=== PATIENT | female | born 1965 | race American Indian/Alaskan Native ===

== ENCOUNTER 2018-12-26 18:14 | Emergency (ER) | payer OTHER ==
--- NOTE | 2018-12-26 18:34 | Event Note ---
ED Screening Note ED Screening Note: CO CP P BEING OUTSIDE POOR HYGIENE AMBULATORY RO ACS/HEAT RELATED ILLNESS This initial assessment/diagnostic orders/clinical plan/treatment(s) is/are subject to change based on patients health status, clinical progression and re- assessment by fellow clinical providers in the ED. Further treatment and workup at subsequent clinical providers discretion. Patient/guardian urged not to elope from the ED as their condition may be serious if not clinically assessed and managed. Initial orders include:
[2018-12-26 19:51] LABS: Hematocrit 31.8 % (30.3-42.9); Hemoglobin 10.5 gm/dl (10.1-14.3); Mean Corpuscular HGB Conc 33 % (30-34); Mean Corpuscular Volume 82 fl (79-97); Platelet Count 353 K/mm3 (140-440); Red Blood Count 3.88 M/mm3 (3.65-5.03); Red Cell Distribution Width 16.7 % (13.2-15.2)
[2018-12-26 20:45] LABS: Alanine Aminotransferase 10 units/L (7-56); Albumin 4.1 g/dL (3.9-5); BUN/Creatinine Ratio 13; Blood Urea Nitrogen 20 mg/dL (7-17); Calcium 9.1 mg/dL (8.4-10.2); Hemolysis Index 1
--- NOTE | 2018-12-26 20:45 | XRay Report ---
PROCEDURE: XR CHEST ROUTINE 2V TECHNIQUE: PA and lateral chest radiographs were obtained. HISTORY: CHEST PAIN COMPARISONS: None. FINDINGS: There is prominence of the interstitial markings in both lungs with peribronchial thickening, acute v ersus chronic. There is no definite evidence of focal infiltrate and no evidence of pneumothorax or pleural fluid co llection. The cardiac silhouette is enlarged. The thoracic aorta is mildly tortuous. The bony structures are unremarkable. IMPRESSION: 1. Enlarged cardiac silhouette. 2. Prominence of the interstitial markings with peribronchial thickening, acute versus chronic. Infec tious and noninfectious etiologies, to include interstitial edema, need to be considered. This document is electronically signed by Kat Denis MD., December 26 2018 08:43:23 PM ET
--- NOTE | 2018-12-26 23:08 | Emergency Department Report ---
ED Chest Pain HPI - General Chief Complaint: Chest Pain Stated Complaint: CHEST PAIN Time Seen by Provider: 12/26/18 18:24 Source: patient Mode of arrival: Ambulatory Limitations: No Limitations - History of Present Illness Initial Comments: Patient was 53-year-old -[place] female who presents for chest pain 2-3 days pain is exacerbated by movement and deep breathing pain is relieved by rest there is no shortness of breath no diaphoresis no nausea vomiting no back pain patient ray symptoms at 08/17 at this time patient denies history of CHF denies history of [place] or coronary artery disease patient is a 30 pack year smoker denies diagnosis of COPD advises that she is out hypertensive medications MD Complaint: chest pain Onset/Timin -: days(s) Onset: during rest Pain Location: left chest Pain Radiation: none Severity: moderate Severity scale (0 -10): 5 Quality: sharp Consistency: constant Improves With: rest Worsens With: inspiration, movement re: denies: nausea, vomting, diaphoresis, dyspnea, sense of impending doom Other Symptoms: cough, fever. denies: syncope, rash, acid taste in mouth, leg swelling, palpitations, burping Treatments Prior to Arrival: none - Related Data Previous Rx's Medication Instructions Recorded Last Taken Type ALBUTEROL Inhaler (OR & NICU) 2 puff IH QID PRN #1 inhalation 12/27/18 Unknown Rx [ProAir HFA Inhaler] Azithromycin [Zithromax Z-TATA] 250 mg PO DAILY #6 tab 12/27/18 Unknown Rx Benzonatate [Tessalon Perles] 100 mg PO Q8HR PRN #30 capsule 12/27/18 Unknown Rx Ibuprofen [Motrin 800 MG tab] 800 mg PO Q8HR PRN #30 tablet 12/27/18 Unknown Rx predniSONE [Deltasone] 40 mg PO QDAY 5 Days #10 tab 12/27/18 Unknown Rx Allergies Allergy/AdvReac Type Severity Reaction Status Date / Time No Known Allergies Allergy Unverified 12/26/18 18:16 Heart Score - HEART Score History: Slightly suspicious EKG: Normal Age: 45-65 Risk factors: No known risk factors Troponin: < normal limit HEART Score: 1 ED Review of Systems ROS: Stated complaint: CHEST PAIN Other details as noted in HPI Constitutional: denies: chills, fever Eyes: denies: eye pain, eye discharge, vision change ENT: denies: ear pain, throat pain, congestion Respiratory: denies: cough, shortness of breath, wheezing Cardiovascular: chest pain (left lateral chest wall tenderness no swelling no erythema no crepitus no deformity ). denies: palpitations Endocrine: no symptoms reported Gastrointestinal: denies: abdominal pain, nausea, diarrhea Genitourinary: denies: urgency, dysuria, discharge Musculoskeletal: denies: back pain, joint swelling, arthralgia Skin: denies: rash, lesions Neurological: denies: headache, weakness, paresthesias Psychiatric: denies: anxiety, depression Hematological/Lymphatic: denies: easy bleeding, easy bruising ED Past Medical Hx - Past Medical History Previous Medical History?: Yes Hx Hypertension: Yes - Surgical History Past Surgical History?: Yes Additional Surgical History: TUBAL - Social History Smoking Status: Never Smoker Substance Use Type: None - Medications Home Medications: Home Medications Medication Instructions Recorded Confirmed Last Taken Type ALBUTEROL Inhaler (OR & NICU) 2 puff IH QID PRN #1 inhalation 12/27/18 Unknown Rx [ProAir HFA Inhaler] Azithromycin [Zithromax Z-TATA] 250 mg PO DAILY #6 tab 12/27/18 Unknown Rx Benzonatate [Tessalon Perles] 100 mg PO Q8HR PRN #30 capsule 12/27/18 Unknown Rx Ibuprofen [Motrin 800 MG tab] 800 mg PO Q8HR PRN #30 tablet 12/27/18 Unknown Rx predniSONE [Deltasone] 40 mg PO QDAY 5 Days #10 tab 12/27/18 Unknown Rx ED Physical Exam - General Limitations: No Limitations General appearance: alert, in no apparent distress - Head Head exam: Present: atraumatic, normocephalic - Eye Eye exam: Present: normal appearance, PERRL, EOMI Pupils: Present: normal accommodation - ENT ENT exam: Present: normal orophraynx, mucous membranes moist, TM's normal bilaterally, normal external ear exam - Neck Neck exam: Present: normal inspection, full ROM. Absent: tenderness, meningismus, lymphadenopathy, thyromegaly - Expanded Neck Exam Expanded Neck exam: Absent: tenderness, midline deformity, anterior neck swelling, thyroid mass, carotid bruit, tracheal deviation - Respiratory Respiratory exam: Present: normal lung sounds bilaterally, chest wall tenderness (left lateral ). Absent: respiratory distress, wheezes, rales, rhonchi, stridor - Cardiovascular Cardiovascular Exam: Present: regular rate, normal rhythm, normal heart sounds. Absent: systolic murmur, diastolic murmur, rubs, gallop - GI/Abdominal GI/Abdominal exam: Present: soft, normal bowel sounds. Absent: distended, tenderness, guarding, rebound, rigid, bruit, hernia - Rectal Rectal exam: Absent: deferred - External exam: Present: normal external exam - Extremities Exam Extremities exam: Present: normal inspection, normal capillary refill - Back Exam Back exam: Present: normal inspection, full ROM. Absent: tenderness, CVA tenderness (R), CVA tenderness (L), muscle spasm, paraspinal tenderness, rash noted - Neurological Exam Neurological exam: Present: alert, oriented X3, CN II-XII intact, normal gait, reflexes normal - Psychiatric Psychiatric exam: Present: normal affect, normal mood - Skin Skin exam: Present: warm, dry, intact, normal color. Absent: rash ED Course Vital Signs 12/26/18 19:54 Temperature 98 F Pulse Rate 103 H Respiratory 20 Rate Blood Pressure 170/92 O2 Sat by Pulse 99 Oximetry TERRY score - Terry Score Age > 65: (0) No Aspirin use within the Past 7 Days: (0) No 3 or more CAD Risk Factors: (0) No 2 or more Angina events in past 24 hrs: (0) No Known CAD with more than 50% Stenosis: (0) No Elevated Cardiac Markers: (0) No ST Deviation Greater than 0.5mm: (0) No TERRY Score: 0 ED Medical Decision Making - Lab Data Result diagrams: 12/26/18 19:16 12/26/18 19:16 Labs 12/26/18 12/26/18 12/26/18 19:16 19:16 22:59 WBC 13.3 H RBC 3.88 Hgb 10.5 Hct 31.8 MCV 82 MCH 27 L MCHC 33 RDW 16.7 H Plt Count 353 Sodium 135 L Potassium 3.7 Chloride 101.1 Carbon Dioxide 18 L Anion Gap 20 BUN 20 H Creatinine 1.6 H Estimated GFR 34 BUN/Creatinine Ratio 13 Glucose 97 Calcium 9.1 Total Bilirubin 0.60 AST 10 ALT 10 Alkaline Phosphatase 96 Troponin T < 0.010 < 0.010 NT-Pro-B Natriuret Pep 201.1 Total Protein 8.3 H Albumin 4.1 Albumin/Globulin Ratio 1.0 - EKG Data EKG shows normal: sinus rhythm, axis, intervals, QRS complexes, ST-T waves Rate: normal - EKG Data Interpretation: normal EKG EKG interp by ED attending NSR no ST ELEVATED [place] 12/27/18 00:42 - Radiology Data Radiology results: report reviewed, image reviewed Ordering Physician: JAYNA GREER Date of Service: 12/26/18 Procedure(s): XR chest routine 2V Accession Number(s): [id number] cc: JAYNA GREER Fluoro Time In Minutes: PROCEDURE: XR CHEST ROUTINE 2V TECHNIQUE: PA and lateral chest radiographs were obtained. HISTORY: CHEST PAIN COMPARISONS: None. FINDINGS: There is prominence of the interstitial markings in both lungs with peribronchial thickening, acute versus chronic. There is no definite evidence of focal infiltrate and no evidence of pneumothorax or pleural fluid collection. The cardiac silhouette is enlarged. The thoracic aorta is mildly tortuous. The bony structures are unremarkable. IMPRESSION: 1. Enlarged cardiac silhouette. 2. Prominence of the interstitial markings with peribronchial thickening, acute versus chronic. Infectious and noninfectious etiologies, to include interstitial edema, need to be considered. This document is electronically signed by Kat Hatfield MD., December 26 2018 08:43:23 PM ET Transcribed By: ED Dictated By: KAT HATFIELD MD Electronically Authenticated By: KAT HATFIELD MD Signed Date/Time: 12/26/182044 DD/ 38 TD/TT: 12/26/18 1900 - Medical Decision Making EKG NSR no ST Elevated [place], CXR: bronchial infiltrates, no opacities, plan: treat for bronchitis versus CAP, ,breathing is improved via with albuterol , pt is currently a/o x ambulatory in ed without increased sob pt dc 'd to home in stable condition. Critical care attestation.: If time is entered above; I have spent that time in minutes in the direct care of this critically ill patient, excluding procedure time. ED Disposition Clinical Impression: Bronchitis URI (upper respiratory infection) Qualifiers: URI type: unspecified viral URI Qualified Code(s): J06.9 - Acute upper respiratory infection, unspecified Disposition: DC- TO HOME OR SELFCARE Is pt being admited?: No Does the pt Need Aspirin: No Condition: Stable Instructions: Acute Bronchitis (ED) Prescriptions: predniSONE [Deltasone] 40 mg PO QDAY 5 Days #10 tab Ibuprofen [Motrin 800 MG tab] 800 mg PO Q8HR PRN #30 tablet PRN Reason: pain ALBUTEROL Inhaler (OR & NICU) [ProAir HFA Inhaler] 2 puff IH QID PRN #1 inhalation PRN Reason: Shortness Of Breath Benzonatate [Tessalon Perles] 100 mg PO Q8HR PRN #30 capsule PRN Reason: cough Azithromycin [Zithromax Z-TATA] 250 mg PO DAILY #6 tab Referrals: RICHARD PAYAN MD [Staff Physician] - 3-[address] [facility] [Provider Group] - 3-5 Days Forms: Work/School Release Form(ED) Time of Disposition: 00:52
[2018-12-26] MEDS ORDERED: PROVENTIL IH ONE (23:25)
[2018-12-26] MEDS ORDERED: IBUPROFEN PO ONE (23:25)
[2018-12-27] MEDS ORDERED: ROCEPHIN IM ONE (00:41)
[2018-12-27] MEDS ORDERED: XYLOCAINE 1% MPF 5 mL INFILTRATI ONE (00:41)
[2018-12-27 08:19] VITALS: BP 162/90
== END 2018-12-27 02:10 | disposition home or self-care (01) ==
LOC: ED 18:14
DX: J06.9 Acute upper respiratory infection, unspecified (principal); J40 Bronchitis, not specified as acute or chronic; I10 Essential (primary) hypertension; Z98.51 Tubal ligation status
CPT/HCPCS: 36415; 71046; 80053; 83880; 84484; 85027; 93005; 93010; 94640; 96372; 99284; J0696